=== PATIENT | female | born 1985 | race African-American/Black ===

== ENCOUNTER 2019-04-05 02:29 | Emergency (ER) | payer MEDICAID ==
[~2019-04-05] VITALS: Ht 167.6 cm; Wt 50.0 kg
[2019-04-05] MEDS ORDERED: ONDANSETRON HCL 4MG/2ML INJ IV STA (05:22)
[2019-04-05] MEDS ORDERED: MORPHINE SULFATE 4 MG/ML CPJ (NOT FOR IM USE) IV STA (05:22)
[2019-04-05] MEDS ORDERED: CLINDAMYCIN 600 MG in DEXTROSE 5% WATER 50 ML IV ONE (05:30)
[2019-04-05 05:51] LABS: BASOPHILS % 0.5 % (0.0-2.0); EOSINOPHILS % 3.2 % (0.0-5.0); HEMATOCRIT. 35.1 % (36.0-48.0); HEMOGLOBIN. 11.9 g/dL (12.0-16.0); LYMPHOCYTES % 41.6 % (20.0-50.0); MEAN CORPUSCULAR HEMOGLOBIN 29.7 pg (28.0-32.0); MEAN CORPUSCULAR VOLUME 87.9 fL (81.0-99.0); MEAN PLATELET VOLUME 7.6 fl (7.4-10.4); MONOCYTES % 5.7 % (2.0-8.0); PLATELET 284 x1000/uL (130-400); RED CELL DISTRIBUTION WIDTH 14.3 % (11.6-14.6)
[2019-04-05 05:56] LABS: CHLORIDE 108 mEq/L (98-107)
[2019-04-05] MEDS ORDERED: CLINDAMYCIN 600MG PREMIX 50 ML IV NR (06:30)
[2019-04-05 09:20] VITALS: BP 122/78
== END 2019-04-05 09:21 | disposition home or self-care (01) ==
LOC: ER 02:29
DX: S60.551A Superficial foreign body of right hand, initial encounter (principal); L03.113 Cellulitis of right upper limb; F14.10 Cocaine abuse, uncomplicated; F15.10 Other stimulant abuse, uncomplicated; W18.39XA Other fall on same level, initial encounter; Y93.89 Activity, other specified; Y92.89 Other specified places as the place of occurrence of the external cause; Y99.8 Other external cause status
CPT/HCPCS: 36415; 73130; 80048; 81025; 83605; 85025; 87040; 96365; 96375; 99284; J2270; J3490; J7060

== ENCOUNTER 2021-05-20 11:11 | Inpatient (IN) | payer MEDICAID ==
[~2021-05-20] VITALS: Ht 170.2 cm; Wt 62.1 kg
[2021-05-20] MEDS ORDERED: IOHEXOL-350 100 ML BOTTLE ONE (12:09)
[2021-05-20 12:15] LABS: BASOPHILS % 0.3 % (0.0-2.0); EOSINOPHILS % 2.2 % (0.0-5.0); HEMATOCRIT. 35.1 % (36.0-48.0); HEMOGLOBIN. 11.8 g/dL (12.0-16.0); LYMPHOCYTES % 22.7 % (20.0-50.0); MEAN CORPUSCULAR HEMOGLOBIN 29.2 pg (28.0-32.0); MONOCYTES % 6.9 % (2.0-8.0); NEUTROPHILS % 67.9 % (40.0-76.0); PLATELET 238 x1000/uL (130-400); RED BLOOD CELL COUNT 4.03 mill/uL (4.2-5.4); RED CELL DISTRIBUTION WIDTH 14.5 % (11.6-14.6)
[2021-05-20] MEDS ORDERED: ASPIRIN 325MG EC TABLET PO ONE (12:15)
[2021-05-20 12:21] LABS: CHLORIDE 108 mEq/L (98-107)
[2021-05-20 12:23] LABS: PROTHROMBIN TIME 10.4 sec (9.6-11.0)
[2021-05-20 12:26] LABS: ETHANOL BLOOD < 10 mg/dL
[2021-05-20 12:28] LABS: LDL CHOLESTEROL 83 mg/dL (5-100)
[2021-05-20] MEDS ORDERED: ACETAMINOPHEN 325MG TABLET PO PRN ×2 (13:15)
[2021-05-20] MEDS ORDERED: ONDANSETRON HCL 4MG/2ML INJ IV PRN (13:15)
[2021-05-20 15:45] LABS: CLARITY URINE CLEAR (CLEAR); COLOR URINE YELLOW (YELLOW); KETONES URINE NEGATIVE (NEGATIVE); LEUKOCYTE ESTERASE URINE NEGATIVE (NEGATIVE); NITRITE URINE NEGATIVE (NEGATIVE); OCCULT BLOOD URINE NEGATIVE (NEGATIVE); PH URINE 6.5 (4.5-8.0); PROTEIN URINE NEGATIVE (NEGATIVE); SPECIFIC GRAVITY URINE 1.054 (1.005-1.030); UROBILINOGEN URINE 0.2 E.U./dL (0.2-1.0)
[2021-05-20 16:19] LABS: *AMPHETAMINES SCREEN URINE NEGATIVE (NEGATIVE); *BARBITURATES SCREEN URINE NEGATIVE (NEGATIVE); *BENZODIAZEPINES SCREEN URINE NEGATIVE (NEGATIVE)
[2021-05-20 16:20] LABS: METHADONE URINE SCREEN NEGATIVE (NEGATIVE)
[2021-05-20 16:21] LABS: CANNABINOID URINE SCREEN NEGATIVE (NEGATIVE); OPIATES URINE SCREEN NEGATIVE (NEGATIVE); PHENCYCLIDINE URINE SCREEN NEGATIVE (NEGATIVE)
[2021-05-20 16:23] LABS: *COCAINE SCREEN URINE PRESUMTIVE POSITIVE (NEGATIVE)
[2021-05-20 16:30] VITALS: BP 116/71
[2021-05-20 17:25] VITALS: BP 116/71
[2021-05-20] MEDS: ENOXAPARIN 40MG/0.4ML SYR SUBCUT SCH (18:51)
[2021-05-20 20:00] VITALS: BP 121/75
[2021-05-21] VITALS (7 sets, daily range): BP systolic 107–126; BP diastolic 65–80
[2021-05-21 06:32] LABS: BASOPHILS % 0.4 % (0.0-2.0); EOSINOPHILS % 2.8 % (0.0-5.0); HEMATOCRIT. 39.8 % (36.0-48.0); HEMOGLOBIN. 12.9 g/dL (12.0-16.0); LYMPHOCYTES % 31.6 % (20.0-50.0); MEAN CORPUSCULAR HEMOGLOBIN 28.8 pg (28.0-32.0); MEAN CORPUSCULAR VOLUME 88.8 fL (81.0-99.0); MEAN PLATELET VOLUME 8.5 fl (7.4-10.4); MONOCYTES % 7.1 % (2.0-8.0); NEUTROPHILS % 58.1 % (40.0-76.0); PLATELET 271 x1000/uL (130-400); RED BLOOD CELL COUNT 4.49 mill/uL (4.2-5.4); RED CELL DISTRIBUTION WIDTH 14.7 % (11.6-14.6)
[2021-05-21 07:02] LABS: CHLORIDE 108 mEq/L (98-107)
[2021-05-21 08:07] LABS: PHOSPHORUS 3.4 mg/dL (2.5-4.9)
[2021-05-21] MEDS: ENOXAPARIN 40MG/0.4ML SYR SUBCUT SCH (13:36)
[2021-05-21] MEDS: ASPIRIN 81MG TABLET PO SCH (21:00)
[2021-05-21] MEDS ORDERED: ATORVASTATIN CALCIUM 20MG TABLET PO SCH (21:00)
[2021-05-22] VITALS: BP 111/72
[2021-05-22 04:00] VITALS: BP 117/75
[2021-05-22 08:00] VITALS: BP 115/78
[2021-05-22] MEDS: ASPIRIN 81MG TABLET PO SCH (08:33)
[2021-05-22 12:00] VITALS: BP 120/76
[2021-05-22] MEDS: ENOXAPARIN 40MG/0.4ML SYR SUBCUT SCH (13:04)
== END 2021-05-22 15:30 | disposition left against medical advice (07) | DRG 816 ==
LOC: ER 11:11 → 7EST 12:15 → EDBEDREQSVC 12:18 → EDBEDREQ 12:18 → SUPCPDRO 12:54 → ENRESERV 14:36
PROVIDERS: ADMIT Internal Medicine; ATTEND Internal Medicine
PROC: 4A10X4Z Monitoring of Central Nervous Electrical Activity, External Approach (ICD-10-PCS; principal; 2021-05-21)
DX: T40.5X1A Poisoning by cocaine, accidental (unintentional), initial encounter (principal); G92.9 Unspecified toxic encephalopathy; E44.0 Moderate protein-calorie malnutrition; F14.90 Cocaine use, unspecified, uncomplicated; Z53.29 Procedure and treatment not carried out because of patient's decision for other reasons; Z59.00 Homelessness unspecified; R53.1 Weakness; Z68.21 Body mass index [BMI] 21.0-21.9, adult
CPT/HCPCS: 36415; 70496; 70498; 70551; 71045; 80048; 80053; 80061; 80305; 80320; 81003; 82962; 83721; 83735; 84100; 84484; 85025; 92610; 93005; 95816; 99291; J1650; Q9967; G0480

== ENCOUNTER 2022-05-01 01:19 | Emergency (ER) | payer MEDICAID ==
[~2022-05-01] VITALS: Ht 162.6 cm; Wt 59.9 kg
[2022-05-01 01:32] VITALS: BP 118/75
[2022-05-02] MEDS ORDERED: DOXY100C5 MT (09:40)
[2022-05-02] MEDS ORDERED: CLIN-194 MT (09:40)
[2022-05-02] MEDS ORDERED: TRAM50TA3 MT (09:40)
== END 2022-05-01 03:30 | disposition left against medical advice (07) ==
LOC: ER 01:19
DX: Z53.21 Procedure and treatment not carried out due to patient leaving prior to being seen by health care provider (principal)

== ENCOUNTER 2022-05-02 05:51 | Emergency (ER) | payer MEDICAID ==
[~2022-05-02] VITALS: Ht 162.6 cm; Wt 58.2 kg
[2022-05-02] MEDS ORDERED: CEFTRIAXONE SODIUM 1 G/VIAL IM ONE (08:15)
[2022-05-02] MEDS ORDERED: TRAMADOL 50MG TABLET PO ONE (08:15)
[2022-05-02 08:18] VITALS: BP 136/96
[2022-05-02] MEDS ORDERED: TRAM50TA3 MT (09:40)
[2022-05-02] MEDS ORDERED: DOXY100C5 MT (09:40)
[2022-05-02] MEDS ORDERED: CLIN-194 MT (09:40)
== END 2022-05-02 09:56 | disposition home or self-care (01) ==
LOC: ER 05:51
DX: L03.211 Cellulitis of face (principal)
CPT/HCPCS: 81025; 96372; 99283; J0696